=== PATIENT | female | born 1965 | race Caucasian/White ===

== ENCOUNTER 2021-01-14 18:22 | Emergency (ER) | payer BC ==
[~2021-01-14] VITALS: Wt 104.3 kg
[~2021-01-14 18:22] MED LIST: AUGMENTIN 875875 MG PO; BENTYL10 MG PO; CELEXA20 MG PO; CLARITIN10 MG PO; COREG25 MG PO; Carafate1 GM PO; HYDR12.5C PO; MELOXICAM15 MG PO; MIRALAX17 GM PO; MULTI VITAMINS1 TAB PO; MULTIPLE VITAMI1 T25 PO; NORCO 10-325 T1 EACH PO; PAN-C 500 TABL1 EACH PO; PRAVACHOL40 MG PO; PREDNISONE20 M1 PO; PROBIOTIC1 EAC2 PO; PROTONIX IV40 MG PO; RANITIDINE 7575 MG PO; STOOL SOFTENER100 M3 PO; SUMATRIPTAN SUC25 M1 PO; SYNTHROID,LEV112 MCG PO; TESSALON PERLE100 M1 PO; TIGAN300 M1 PO; TRIAMTERENE & H1 CAP PO; WELLBUTRIN SR100 MG PO
[2021-01-14 18:38] VITALS: BP 134/67
== END 2021-01-14 21:50 | disposition home or self-care (01) ==
LOC: ED 18:22
DX: T14.8XXA Other injury of unspecified body region, initial encounter (principal); M25.531 Pain in right wrist; M25.561 Pain in right knee; M25.571 Pain in right ankle and joints of right foot; I10 Essential (primary) hypertension; K21.9 Gastro-esophageal reflux disease without esophagitis; F32.9 Major depressive disorder, single episode, unspecified; F41.9 Anxiety disorder, unspecified; E07.9 Disorder of thyroid, unspecified; Z88.2 Allergy status to sulfonamides; Z88.8 Allergy status to other drugs, medicaments and biological substances; Z79.899 Other long term (current) drug therapy; Z98.890 Other specified postprocedural states; Z90.711 Acquired absence of uterus with remaining cervical stump; Z90.89 Acquired absence of other organs; Z90.49 Acquired absence of other specified parts of digestive tract; Z98.51 Tubal ligation status; W01.198A Fall on same level from slipping, tripping and stumbling with subsequent striking against other object, initial encounter; Y93.89 Activity, other specified; Y92.89 Other specified places as the place of occurrence of the external cause; Y99.8 Other external cause status

== ENCOUNTER → 2023-10-20 | Day surgery (SDC) | payer OTHER ==
[~2023-10-20] VITALS: Ht 152.4 cm; Wt 97.5 kg
[~2023-10-20] MED LIST changes: +ADVAIR 250/501 EA INH; +BUSPIRONE HCL15 MG PO; +CETIRIZINE10 MG PO; +CYMBALTA30 MG PO; +FAMOTIDINE20 M1 PO; +FENOFIBRATE145 M1 PO; +FLONASE ALLERG9.9 ML NAS; +METFORMIN HYDR500 MG PO; +QUERCETIN PO; +SINGULAIR10 M1 PO; +SYNTHROID,LEV175 MCG PO
[2023-10-20 08:05] VITALS: BP 131/70
[2023-10-20 08:28] VITALS: BP 124/76
[2023-10-20 08:43] VITALS: BP 122/68
[2023-10-20 08:58] VITALS: BP 129/79
[2023-10-21 12:43] VITALS: BP 124/76
== END | disposition home or self-care (01) ==
LOC: SDC 10-18 08:00
PROVIDERS: ATTEND Specialist
DX: H65.493 Other chronic nonsuppurative otitis media, bilateral (principal); I10 Essential (primary) hypertension; E11.9 Type 2 diabetes mellitus without complications; K21.9 Gastro-esophageal reflux disease without esophagitis; J45.909 Unspecified asthma, uncomplicated; G43.909 Migraine, unspecified, not intractable, without status migrainosus; E78.00 Pure hypercholesterolemia, unspecified; F41.9 Anxiety disorder, unspecified; F32.A Depression, unspecified; K44.9 Diaphragmatic hernia without obstruction or gangrene; E03.9 Hypothyroidism, unspecified; F43.10 Post-traumatic stress disorder, unspecified; Z90.49 Acquired absence of other specified parts of digestive tract; Z90.89 Acquired absence of other organs; Z98.890 Other specified postprocedural states; Z88.2 Allergy status to sulfonamides; Z88.8 Allergy status to other drugs, medicaments and biological substances